=== PATIENT | male | born 1955 | race Caucasian/White ===

== ENCOUNTER 2021-10-06 16:15 | Emergency (ER) | payer BC ==
[~2021-10-06] VITALS: Ht 180.3 cm; Wt 86.2 kg
--- NOTE | 2021-10-06 16:55 | NUR ---
66 YRS MALE C/O SWALLEN ON TESTICULE FOR 2 WEEKS
--- NOTE | 2021-10-06 18:00 | NUR ---
US OF SCROTUM DONE AT BED SIDE TOLORATED PROCEDUR WILL
--- NOTE | 2021-10-06 18:19 | NUR ---
UA SENT TO LAB
[2021-10-06 18:43] LABS: BILIRUBIN,URINE NEGATIVE (NEGATIVE); COLOR,URINE YELLOW (YELLOW); LEUKOCYTE ESTERASE ,URINE NEGATIVE (NEGATIVE); NITRITE, URINE NEGATIVE (NEGATIVE); PROTEIN,URINE NEGATIVE (NEGATIVE); UGLUCOSE NEGATIVE (NEGATIVE); UROBILINOGEN,URINE 0.2 EU/dL (0.2)
[2021-10-06] MEDS ORDERED: LEVO750T46 PO (19:04)
--- NOTE | 2021-10-06 19:09 | NUR ---
d/c instraction given to pt fully and verblized understood d/c home no pain
[2021-10-06 19:10] VITALS: BP 133/83
== END 2021-10-06 19:12 | disposition home or self-care (01) ==
LOC: ER 16:21
DX: N45.1 Epididymitis (principal)
CPT/HCPCS: 76870-TC